=== PATIENT | female | born 1995 | race Caucasian/White ===

== ENCOUNTER 2018-12-11 22:20 | Emergency (ER) | payer SELFPAY ==
[~2018-12-11] VITALS: Ht 152.4 cm; Wt 65.8 kg
[~2018-12-11 22:20] MED LIST: IBUP-1542 PO
[2018-12-11 22:42] VITALS: BP 120/63; PULSE 64; RESP 18; Ht 152.4 cm; Wt 65.8 kg
== END 2018-12-12 02:53 | disposition left against medical advice (07) ==
LOC: FTE 22:20
DX: Z53.21 Procedure and treatment not carried out due to patient leaving prior to being seen by health care provider (principal)